=== PATIENT | female | born 1965 | race Two or more races ===

== ENCOUNTER 2024-07-12 10:30 | Emergency (ER) | payer MEDICAID, SELFPAY ==
[2024-07-12 10:40] VITALS: BP 169/103; PULSE 83; RESP 20; TEMP 36.4; O2SAT 96; BMI 38.5
--- NOTE | 2024-07-12 10:42 | PD.EDURI ---
Upper Respiratory Inf. RME/HPI General Chief Complaint: Flu Like Symptoms Stated Complaint: Cough X 8 days, SOB Time Seen by Provider: 07/12/24 10:34 Arrival date/time: 07/12/24 10:30 RME / HPI RME / HPI Narrative: This section includes all my notes and documentations, including HPI, PE, MDM, Procedure Notes, and PLAN. He Zamora MD HPI: 58 year old female with history of hypertension, diabetes, and hyperlipidemia presents to the ED for complaint of a dry cough beginning 8 days ago. Accompanied by pain to her chest and rib cage which she attributes to coughing. Denies fevers, chills, sweats, sore throat, shortness of breath, abdominal pain, n/v/d, or urinary symptoms. No other complaints reported. ROS: Respiratory: negative except as documented in HPI. Musculoskeletal: negative except as documented in HPI. Skin: negative except as documented in HPI. Neurological: negative except as documented in HPI. Physical Exam: General: Alert and oriented. Hacking cough noted. Eyes: Conjunctivae and lids clear. ENT: No nasal congestion. Pharynx normal. Tympanic membrane normal bilaterally. Neck: Supple. Heart: RRR. Lungs: No respiratory distress. Moderately decreased air movement with diffuse rhonchi. Legs: No clubbing, cyanosis, edema. Skin: Warm and dry. Neuro: Alert and oriented X 3. I reviewed all diagnostic test results. My interpretation of the chest x-ray is no acute findings. COVID/influenza negative. At this point, diagnoses include bronchitis. Treatment here included prednisone 60 mg, DuoNeb, and two Tylenol #3. Significant improvement noted subjectively and objectively. Recommended a trial of outpatient treatment. Based on my best medical judgment, made decision no further evaluation or treatment indicated at this time. Patient understands and agrees to the discharge instructions customized and printed, see below. Discharge instructions from Dr. Zamora: --No physical exertion for 3 days to help rest the lungs. ?No smoking or exposure to smoking or pets or dust or cold or humidity. --Zithromax to kill the germs causing the bronchitis. --Prednisone to help decrease the swelling in the airways. --Albuterol 2 puffs every 4-6 hours for 48 hours to help keep the airways open.? Then as needed for cough or shortness of breath. --Tylenol with codeine for severe cough. --See a private doctor on 07/16/2024 if not better. --Seek immediate medical care with worsening or with any concerns. Related Data Previous Rx's ?Medication ?Instructions ?Recorded albuterol sulfate 90 mcg/actuation 2 puff inhalation Q6H PRN 07/20/22 aerosol inhaler (Ventolin HFA) shortness of breath or wheezing #8.5 grams azithromycin 500 mg tablet See Rx Instructions PO .COMPLEX #6 07/20/22 tabs promethazine-DM 6.25 mg-15 mg/5 mL 5 ml PO Q6H PRN cough #240 mL 07/20/22 oral syrup cyclobenzaprine 10 mg tablet 10 mg PO TID #20 tabs 08/20/22 meloxicam 7.5 mg tablet 7.5 mg PO QDAY #14 tabs 08/20/22 cyclobenzaprine 10 mg tablet 10 mg PO TID PRN muscle spasm #30 03/31/23 tabs ibuprofen 800 mg tablet 800 mg PO TID PRN pain #30 tabs 03/31/23 acetaminophen 300 mg-codeine 30 mg 2 tab PO TID PRN pain #10 tabs 07/12/24 tablet albuterol sulfate 90 mcg/actuation 2 inh inhalation QID PRN shortness 07/12/24 aerosol inhaler of breath or wheezing #8.5 grams azithromycin 500 mg tablet 500 mg PO QDAY 3 days #3 tabs 07/12/24 (Zithromax TRI-ANGELINE) prednisone 50 mg tablet 50 mg PO QDAY #3 tabs 07/12/24 Allergies Allergy/AdvReac Type Severity Reaction Status Date / Time No Known Allergies Allergy Verified 08/20/22 11:43 Review of Systems Review of Systems Systems Reviewed: All systems reviewed, normal except as documented Past Medical History Past Medical History CARDIAC: Negative Cardiac Disorders or Congestive Heart Failure RESPIRATORY: Negative Chronic Obstructive Pulmonary Disease (COPD) or Asthma GENITOURINARY: Negative Renal Disease ENDOCRINE: Negative Diabetes Mellitus Type 1 or Diabetes Mellitus Type 2 HEMATOLOGIC: Negative Sickle Cell Disease Social History SMOKING STATUS: Former smoker ED Exam Narrative Physical exam: As noted in HPI Course Course Course Narrative: chest xray ordered to help determine etiology of shortness of breath. Quality Measures none Orders Category Date Time Status Bedside COVID-19 Antigen Test NOW Care 07/12/24 10:41 Completed Bedside Influenza A&B Antigen Test NOW Care 07/12/24 10:41 Completed XR chest 1V portable Stat Exams 07/12/24 10:41 Completed ACETAMINOPHEN w/COD 300-30 [Tylenol w/Cod #3] Med 07/12/24 10:42 Discontinued 2 tab PO X1 ONE Albuterol/Ipratr Rt Kina [Duoneb Rt Kina] Med 07/12/24 10:42 Discontinued 3 ml INH X1 ONE cloNIDine HCL [Catapres] Med 07/12/24 10:42 Discontinued 0.3 mg PO X1 ONE predniSONE Med 07/12/24 10:42 Discontinued 60 mg PO X1 ONE Vital Signs Vital signs: Vital Signs Temperature 97.5 F 07/12/24 10:40 Pulse Rate 83 07/12/24 10:40 Respiratory Rate 20 07/12/24 10:40 Blood Pressure 169/103 H 07/12/24 10:40 Pulse Oximetry (%) 96 07/12/24 10:40 Oxygen Delivery Method Room Air 07/12/24 10:40 Pulse ox is 96% on room air which is adequate. Upper Respiratory Infection MDM Narrative MDM Narrative:: Kary Matute am scribing for and in the presence of Dr. Zamora. Patient data External records reviewed:: [facility] previous records Clinical information provided by:: patient Social determinants that could affect healthcare access:: none Patient has the following chronic illnesses:: HTN, DM, HLD How is presenting disease/condition affected by chronic disease/condition?: uneffected by Evaluation data The following diagnostics were reviewed and interpreted by me:: lab results and radiology exam(s) Lab and/or radiology exams considered but not ordered:: None Interpretation Summary: Ordering Physician: He Zamora MD Date of Service: 07/12/24 Procedure(s): XR chest 1V portable Accession Number(s): [id number] cc: He Zamora MD; Mychal Theodore MD~ Examination: PA chest single view TECHNIQUE: Upright PA chest single view Exam date and time: July 12, 2024 1045 hours Comparison 03/20/2022 INDICATIONS: Chest pain coughing beginning 8 days ago FINDINGS: Normal heart size. Lungs are clear. The osseous structures are intact IMPRESSION: No active disease Dictated By: Mychal Theodore MD Signed By: <Electronically signed by Mychal Theodore MD in OV> 07/12/24 1136 Medications / Prescriptions Medications or Prescriptions considered but not ordered:: None Medication administrations:: Medication Administration History Discontinued Medications Acetaminophen/Codeine Phosphate (Acetaminophen W/Cod 300-30 Tablet) 2 tab PO X1 ONE Stop: 07/12/24 10:43 Last Admin: 07/12/24 11:39 Dose: 2 tab Documented By: OA Albuterol/Ipratropium (Albuterol/Ipratropium (Duoneb) Rt Kina 3 Ml Nebu) 3 ml INH X1 ONE Stop: 07/12/24 10:43 Last Admin: 07/12/24 11:43 Dose: 3 ml Documented By: Clonidine (Clonidine Hcl 0.1 Mg Tablet) 0.3 mg PO X1 ONE Stop: 07/12/24 10:43 Last Admin: 07/12/24 11:39 Dose: 0.3 mg Documented By: OA Prednisone (Prednisone 20 Mg Tablet) 60 mg PO X1 ONE Stop: 07/12/24 10:43 Last Admin: 07/12/24 11:40 Dose: 60 mg Documented By: OA See above Consultations Consultation(s) initiated? (list below): No Diagnosis Upper Respiratory Differential Diagnosis: upper respiratory infection, sinusitis, viral infection and bronchitis Most likely diagnosis given after review of the tests above:: Bronchitis Admission Indicated Admission indicated?: not indicated Admission Request Was there a request for admission?: No Disposition Plan Disposition Plan: Discharge Discharge Attestation Discharge Attestation: The patient and all family members were given an opportunity to ask questions and understood the discharge instructions. Discharge instructions specifically effects, indications for sooner follow up or return to the emergency department, and the expected course of current diagnosis. Patient condition: Stable Discharge Plan Plan Patient Disposition: HOME (Self Care) Prescriptions/Referrals Prescriptions/Med Rec: New acetaminophen-codeine 300-30 mg tablet 2 tab PO TID MDD 6 PRN (Reason: pain) Qty: 10 0RF albuterol sulfate 90 mcg/actuation HFA aerosol inhaler 2 inh inhalation QID PRN (Reason: shortness of breath or wheezing) Qty: 8.5 0RF azithromycin [Zithromax TRI-ANGELINE] 500 mg tablet 500 mg PO QDAY 3 Days Qty: 3 0RF prednisone 50 mg tablet 50 mg PO QDAY Qty: 3 0RF No Action cyclobenzaprine 10 mg tablet 10 mg PO TID Qty: 20 0RF meloxicam 7.5 mg tablet 7.5 mg PO QDAY Qty: 14 0RF cyclobenzaprine 10 mg tablet 10 mg PO TID PRN (Reason: muscle spasm) Qty: 30 0RF ibuprofen 800 mg tablet 800 mg PO TID PRN (Reason: pain) Qty: 30 0RF albuterol sulfate [Ventolin HFA] 90 mcg/actuation HFA aerosol inhaler 2 puff inhalation Q6H PRN (Reason: shortness of breath or wheezing) Qty: 8.5 0RF azithromycin 500 mg tablet See Rx Instructions .ROUTE .COMPLEX Qty: 6 0RF Rx Instructions: take 500 mg today (day 1), then 250 mg for 4 days (days 2-5) promethazine-DM 6.25-15 mg/5 mL syrup 5 ml PO Q6H PRN (Reason: cough) Qty: 240 0RF Referrals: Te Guevara FNP [Primary Care Provider] - In 1 week Problem List Clinical Impression: Bronchitis Patient/Caregiver Discharge Instructions Discharge Activity: activity as tolerated Education Materials: ED Bronchitis with Wheezing (Adult) Additional Instructions: Discharge instructions from Dr. Zamora: --No physical exertion for 3 days to help rest the lungs. ?No smoking or exposure to smoking or pets or dust or cold or humidity. --Zithromax to kill the germs causing the bronchitis. --Prednisone to help decrease the swelling in the airways. --Albuterol 2 puffs every 4-6 hours for 48 hours to help keep the airways open.? Then as needed for cough or shortness of breath. --Tylenol with codeine for severe cough. --See a private doctor on 07/16/2024 if not better. --Seek immediate medical care with worsening or with any concerns. Print Language: [place] Stand Alone Forms: [employer] Award Info., Patient Portal Info Letter
[2024-07-12 11:39] VITALS: BP 169/103; PULSE 83
[2024-07-12] MEDS: cloNIDine HCL 0.1 MG TABLET 0.3 MG PO (11:39)
[2024-07-12] MEDS: ACETAMINOPHEN w/COD 300-30 TABLET 2 TAB PO (11:39)
[2024-07-12] MEDS: predniSONE 20 MG TABLET 60 MG PO (11:40)
[2024-07-12] MEDS: ALBUTEROL/IPRATROPIUM (Duoneb) RT SOL 3 ML NEBU INH (11:43)
[2024-07-12 11:46] VITALS: PULSE 80; RESP 18; O2SAT 100
[2024-07-12 12:13] VITALS: BP 144/89; PULSE 78
== END 2024-07-12 12:15 | disposition home or self-care (01) ==
PROVIDERS: Emergency Provider Emergency Medicine; PCP Nurse Practitioner
DX: J40 Bronchitis, not specified as acute or chronic (principal); Z87.891 Personal history of nicotine dependence
CPT/HCPCS: 71045; 87400; 87811; 94640; 99283; A9270; J7512

== ENCOUNTER 2025-01-04 19:22 | Emergency (ER) | payer MEDICAID, SELFPAY ==
[2025-01-04 19:57] VITALS: BP 149/82; PULSE 83; RESP 20; TEMP 36.7; O2SAT 96
--- NOTE | 2025-01-04 20:13 | EKG_ITS ---
[facility] Test Date: 2025-01-04 Pat Name: ESA BENTON Department: Room: - Gender: Female [id number] Analyst: : 1965 Requested By: Earnest Bills Order Number: [id number] Reading MD: Earnest Bills Measurements Intervals [place] Rate: 82 P: 12 NV: 131 QRS: 21 QRSD: 72 T: 32 QT: 345 QTc: 405 Interpretive Statements SINUS RHYTHM LOW QRS VOLTAGE IN PRECORDIAL LEADS [QRS DEFLECTION < 1.0 mV IN CHEST LEADS] No previous ECG available for comparison /store/S0/[id number].pdf
--- NOTE | 2025-01-04 20:13 | XR_ITS ---
Examination: PA chest single view TECHNIQUE: Upright PA chest single view Date and time: 04/06/20252034 hours, comparison July 12, 2024 INDICATIONS: Chest pain and headache today FINDINGS: Normal heart size. Lungs are clear. Osseous structures are demineralized IMPRESSION: No active disease
--- NOTE | 2025-01-04 20:14 | XR_ITS ---
Examination: CT brain head without contrast. 2-D sagittal coronal reconstructions Date and time of exam:January 04, 2025 10:21 PM Comparison March 31, 2023 INDICATIONS: Onset blurred vision today CTDI: vol (mGy):51 DLP: (mGycm):967 Technique: Multiple CT axial sections of the brain have been obtained, 5 mm slice thickness. Contrast has not been administered. 2-D sagittal, coronal reconstructions have been obtained Low dose protocols were performed. One or more of the following dose reduction techniques were used; automated exposure control, adjustment of the mA and/or KV according to patient size, use of iterative reconstruction technique. Findings: No significant ventricular enlargement. Intra-axial or extra-axial hemorrhage density is not seen. No mass effect or midline shift Basal cisterns are not remarkable. Fourth ventricle is midline. Cranial vault intact. Impression: Negative for acute hemorrhage, mass effect or midline shift Advise clinical correlation and follow up accordingly
--- NOTE | 2025-01-04 20:15 | PD.EDRME ---
Rapid Medical Screening Exam [facility] Arrival date/time: 01/04/25 19:22 59F with history of HTN and hypothyroidism presents to ED with 2 weeks of blurry vision. Patient also has 2 days of CP, LLQ ab pain, and some N/V.Patient denies SOB and URI symptoms. Chief Complaint: Headache Vital signs: Vital Signs Temperature 98.0 F 01/04/25 19:57 Pulse Rate 83 01/04/25 19:57 Respiratory Rate 20 01/04/25 19:57 Blood Pressure 149/82 H 01/04/25 19:57 Pulse Oximetry (%) 96 01/04/25 19:57 Oxygen Delivery Method Room Air 01/04/25 19:57
[2025-01-04 20:43] LABS: Basophils % (Auto) 0 % (0-2.5); Eosinophils # (Auto) 0.2 Thou/mm3 (0.0-0.5); Eosinophils % (Auto) 2 % (0-10); Hematocrit 39.2 % (36.0-46.0); Hemoglobin 13.5 g/dL (12.0-16.0); Immature Granulocytes % (Auto) 0 % (0-0); Immature Granulocytes Auto 0.02 Thou/mm3 (0.00-0.00); Lymphocytes % (Auto) 29 % (10-50); Mean Corpuscular HGB Conc 34.4 g/dl (31.0-37.0); Mean Corpuscular Hemoglobin 29.2 pg (25.0-35.0); Mean Corpuscular Volume 85 fL (80-100); Monocytes # (Auto) 0.7 Thou/mm3 (0.0-0.8); Monocytes % (Auto) 6 % (0-12); Neutrophils # (Auto) 6.5 Thou/mm3 (1.8-7.7); Neutrophils % (Auto) 63 % (37-80); Nucleated Red Blood Cell % 0 /100 WBC (0); Platelet Count 213 Thou/mm3 (140-440); RDW Standard Deviation 39.3 fL (36.4-46.3); Red Blood Count 4.63 Miln/mm3 (4.00-5.20); White Blood Count 10.3 Thou/mm3 (3.6-11.0)
[2025-01-04 21:00] LABS: B-Type Natriuretic Peptide < 20 pg/mL (0-100)
[2025-01-04 21:04] LABS: Alanine Aminotransferase 12 U/L (10-49); Albumin, Serum 4.8 gm/dL (3.5-5.0); Albumin/Globulin Ratio 1.5 (1.2-2.2); Alkaline Phosphatase 106 U/L (46-116); Anion Gap 9 (7-16); Aspartate Amino Transferase 19 U/L (0-34); BUN/Creatinine Ratio 16 Ratio (12-20); Bilirubin,Total 0.8 mg/dL (0.3-1.2); Blood Urea Nitrogen 13 mg/dL (9-23); Calcium 9.1 mg/dL (8.3-10.6); Calcium (Corrected) 9.1 mg/dL (8.5-10.1); Carbon Dioxide 27.7 mMol/L (20.0-31.0); Chloride 103 mMol/L (98-107); Creatinine (Component) 0.8 mg/dL (0.6-1.3); Globulin 3.1 gm/dL (2.3-3.5); Glucose 105 mg/dL (74-106); Lipase 40 U/L (12-53); Osmolality,Calculated 279 (275-295); Sodium 140 mMol/L (136-145); Total Protein 7.9 gm/dL (5.7-8.2); Troponin I < 0.002 ng/mL (0.0-0.045); eGFR > 60 See Note
[2025-01-04 21:05] LABS: Free T4 (Free Thyroxine) 1.34 ng/dL (0.89-1.76); Thyroid Stimulating Hormone 1.76 uIU/mL (0.55-4.78)
[2025-01-04 22:50] LABS: Collection Type, Urine Clean Catch
[2025-01-04 23:07] LABS: Bilirubin,Urine Negative (Negative); Blood,Urine Negative (Negative); Clarity,Urine Clear (Clear/Hazy); Color,Urine Lt-Yellow (Lt Yel-Yel); Glucose, Urine Negative (Negative); Ketones,Urine Negative (Negative); Leukocyte Esterase,Urine Positive (Negative); Nitrite,Urine Positive (Negative); PH,Urine 6.5 (5.0-7.0); Protein,Urine Negative (Neg - Trace); Specific Gravity,Urine 1.009 (1.001-1.035); Urobilinogen,Urine Negative mg/dL (0.0-1.0)
[2025-01-04 23:20] LABS: RBC,Urine 3 /hpf (0-3); WBC,Urine 26 /hpf (0-5)
[2025-01-04 23:21] LABS: Squamous Epithelial Cell,Urine 3 /hpf (0-5)
[2025-01-04 23:22] LABS: Bacteria,Urine 2+
[2025-01-04 23:25] LABS: Amphetamine/Methamp Scrn,U Negative (Negative); Barbiturate Screen,Urine Negative (Negative); Benzodiazepines Screen,Urine Negative (Negative); Benzoylecgonine Screen, Ur Negative (Negative); Fentanyl Screen,Urine Negative (Negative); Opiate Screen,Urine Negative (Negative); THC Screen,Urine Negative (Negative)
--- NOTE | 2025-01-05 00:38 | EDNOTE_ITS ---
ED Headache RME/HPI General Chief Complaint: Headache Stated Complaint: HEADACHE Arrival date/time: 01/04/25 19:22 RME / HPI RME / HPI Narrative: 01/04/25 19:22 59F with history of HTN and hypothyroidism presents to ED with 2 weeks of blurry vision. Patient also has 2 days of CP, LLQ ab pain, and some N/V.Patient denies SOB and URI symptoms. Dr. Tamez?s Main ED Evaluation: 59yo female with a history of HTN presents to the ED for multiple complaints. Patient states she started having a headache, heavy eyelids , dizziness described as the room is spinning, chest pain, shortness of breath, abdominal pain, and N/V earlier today, reporting all of her symptoms came at once. Patient states she had similar symptoms 3 months ago, but notes they had resolved on their own. Patient states her symptoms were persistent today and she was concerned, so she came in for evaluation, Patient denies any back pain, diarrhea, numbness, tingling, fever, chills or any other associated symptoms. NKA. Related Data Previous Rx's ?Medication ?Instructions ?Recorded albuterol sulfate 90 mcg/actuation 2 puff inhalation Q 6H PRN 07/20/22 aerosol inhaler (Ventolin HFA) shortness of breath or wheezing #8.5 grams azithromycin 500 mg tablet See Rx Instructions PO .COM PLEX #6 07/20/22 tabs promethazine-DM 6.25 mg-15 mg/5 mL 5 ml PO Q6H PRN cou gh #240 mL 07/20/22 oral syrup cyclobenzaprine 10 mg tablet 10 mg PO TID #20 tabs meloxicam 7.5 mg tablet 7.5 mg PO QDAY #14 tabs 07/24 cyclobenzaprine 10 mg tablet 10 mg PO TID PRN muscle s pasm #30 03/31/23 tabs ibuprofen 800 mg tablet 800 mg PO TID PRN pain #30 t abs 03/31/23 acetaminophen 300 mg-codeine 30 mg 2 tab PO TID PRN pa in #10 tabs 07/12/24 tablet albuterol sulfate 90 mcg/actuation 2 inh inhalation QI D PRN shortness 07/12/24 aerosol inhaler of breath or wheezing #8.5 g lindsay prednisone 50 mg tablet 50 mg PO QDAY #3 tabs aluminum-mag hydroxide-simethicone 15 ml PO QID PRN GE RD #3,000 mL 01/05/25 200 mg-200 mg-20 mg/5 mL oral susp (Maalox Advanced) ibuprofen 600 mg tablet 600 mg PO Q6H PRN headache # 20 tabs 01/05/25 meclizine 25 mg chewable tablet 25 mg PO TID PRN Posit ional 01/05/25 (Antivert) vertigo #20 tabs nitrofurantoin 100 mg PO BID Urinary tract 01/05/25 monohydrate/macrocrystals 100 mg infection #14 caps capsule (Macrobid) Allergies Allergy/AdvReac Type Severity Reaction Status Date / Time No Known Allergies Allergy Verified 08/20/22 11:43 Review of Systems Review of Systems Systems Reviewed: All systems reviewed, normal except as documented Past Medical History Past Medical History CARDIAC: Negative Cardiac Disorders or Congestive Heart Failure RESPIRATORY: Negative Chronic Obstructive Pulmonary Disease (COPD) or Asthma GENITOURINARY: Negative Renal Disease ENDOCRINE: Negative Diabetes Mellitus Type 1 or Diabetes Mellitus Type 2 HEMATOLOGIC: Negative Sickle Cell Disease Social History SMOKING STATUS: Never smoker ED Exam Narrative Physical exam: GENERAL APPEARANCE: alert and oriented x 4, well-developed, well-nourished, no acute distress VITALS: All vitals were reviewed and the pulse ox is 96% on room air, which is normal according to my interpretation. HEENT: Normocephalic, atraumatic; pupils equal, round, reactive to light; EOMI; left horizontal nystagmus, mucous membranes pink, moist; oropharynx clear NECK: Supple LUNGS: CTABL; no wheezes, no rales, no rhonchi HEART: Regular rate, regular rhythm; normal S1, S2; no murmurs ABDOMEN: non distended; normal BS; soft, no tenderness, no guarding, no rebound; no masses, no organomegaly, no hernia BACK: no CVA tenderness EXTREMITIES: atraumatic; no edema NEUROLOGIC: awake; alert and oriented x4; cranial nerves II-XII grossly intact; no focal sensory or motor deficits; no intention tremor, steccato speech, dysmetria or dysdiadochokinesia PSYCHIATRIC: appropriate mood and affect SKIN: warm, dry, normal color; no rashes Course Course Course Narrative: CXR is ordered for determining the etiology of chest pain. Quality Measures none Orders Category Date Time Status EKG (ED ONLY) *Do not use* NOW Care 01/04/25 20:[address] head/brain wo con Stat Exams 01/04/25 20:14 Completed EKG (ED Only) Stat Exams 01/04/25 20:13 Draft XR chest 1V portable Stat Exams 01/04/25 20:13 Completed B-Type Natriuretic Peptide Stat Lab 01/04/25 20:32 Completed CBC Stat Lab 01/04/25 20:32 Completed Comprehensive Metabolic Panel Stat Lab 01/04/25 20:32 Completed Drug Screen,Urine Stat Lab 01/04/25 22:40 Completed Free T4 (Free Thyroxine) Stat Lab 01/04/25 20:32 Completed Lipase Stat Lab 01/04/25 20:32 Completed TSH [Thyroid Stimulating Hormone] Stat Lab 01/04/25 20:32 Completed Troponin I Stat Lab 01/04/25 20:32 Completed Urinalysis Stat Lab 01/04/25 22:40 Completed Vital Signs Vital signs: Vital Signs Temperature 98.0 F 01/04/25 19:57 Pulse Rate 83 01/04/25 19:57 Respiratory Rate 20 01/04/25 19:57 Blood Pressure 149/82 H 01/04/25 19:57 Pulse Oximetry (%) 96 01/04/25 19:57 Oxygen Delivery Method Room Air 01/04/25 19:57 Headache MDM Narrative MDM Narrative:: Scribe Attestation: 01/05/25 Katy Mack am scribing for and in the presence of Dr. Tamez. Patient data External records reviewed:: [facility] previous records (Per chart review, patient was seen here on 03/31/23 for a headache.) Clinical information provided by:: patient Social determinants that could affect healthcare access:: none Patient has the following chronic illnesses:: HTN How is presenting disease/condition affected by chronic disease/condition?: uneffected by Evaluation data The following diagnostics were reviewed and interpreted by me:: lab results and radiology exam(s) Lab and/or radiology exams considered but not ordered:: none Interpretation Summary: CBC is normal, CMP is normal, Troponin is normal, BNP is normal, TSH and Free T4 are normal, UA is positive for a UTI, UDS is negative, according to my interpretation. EKG done at 2017, NSR, rate of 82, normal axis, no ectopy, no acute ischemia, according to my interpretation. [facility] Signed Patient: ESA BENTON [facility]. Record#: [id number] Birthdate: 1965 Age/Sex: 59 / F Location: [facility] Attending Dr: Ordering Physician: Earnest Bills PA-C Date of Service: 01/04/25 Procedure(s): XR chest 1V portable Accession Number(s): [id number] cc: Mychal Theodore MD; Te Guevara; Earnest Bills PA-C~ Examination: PA chest single view TECHNIQUE: Upright PA chest single view Date and time: 04/06/2025 2035 hours, comparison July 12, 2024 INDICATIONS: Chest pain and headache today FINDINGS: Normal heart size. Lungs are clear. Osseous structures are demineralized IMPRESSION: No active disease Dictated By: Mychal Theodore MD Signed By: <Electronically signed by Mychal Theodore MD in OV> 01/04/252052 [facility] Signed Patient: ESA BENTON [facility]. Record#: [id number] Birthdate: 1965 Age/Sex: 59 / F Location: [facility] Attending Dr: Ordering Physician: Earnest Bills PA-C Date of Service: 01/04/25 Procedure(s): CT head/brain wo con Accession Number(s): [id number] cc: Mychal Theodore MD; Te Guevara; Earnest Bills PA-C~ Examination: CT brain head without contrast. 2-D sagittal coronal reconstructions Date and time of exam:January 04, 2025 10:21 PM Comparison March 31, 2023 INDICATIONS: Onset blurred vision today CTDI: vol (mGy):51 DLP: (mGycm):967 Technique: Multiple CT axial sections of the brain have been obtained, 5 mm slice thickness. Contrast has not been administered. 2-D sagittal, coronal reconstructions have been obtained Low dose protocols were performed. One or more of the following dose reduction techniques were used; automated exposure control, adjustment of the mA and/or KV according to patient size, use of iterative reconstruction technique. Findings: No significant ventricular enlargement. Intra-axial or extra-axial hemorrhage density is not seen. No mass effect or midline shift Basal cisterns are not remarkable. Fourth ventricle is midline. Cranial vault intact. Impression: Negative for acute hemorrhage, mass effect or midline shift Advise clinical correlation and follow up accordingly Dictated By: Mychal Theodore MD Signed By: <Electronically signed by Mychal Theodore MD in OV> 01/04/25 1434 Medications / Prescriptions Medications or Prescriptions considered but not ordered:: none Medication administrations:: see above Consultations Consultation(s) initiated? (list below): No Diagnosis Differential diagnosis headache: other (cerebellar CVA, benign positional vertigo, near syncope, hemorrhagic CVA, STEMI, NSTEMI, GERD) Most likely diagnosis given after review of the tests above:: see clinical impression below Admission Indicated Admission indicated?: not indicated Admission Request Was there a request for admission?: No Disposition Plan Disposition Plan: Discharge Discharge Attestation Discharge Attestation: The patient and all family members were given an opportunity to ask questions and understood the discharge instructions. Discharge instructions specifically effects, indications for sooner follow up or return to the emergency department, and the expected course of current diagnosis. Patient condition: Stable Discharge Plan Plan Patient Disposition: HOME (Self Care) Discharge Disposition comment: Stable for discharge home Patient condition on transfer: Stable Prescriptions/Referrals Prescriptions/Med Rec: New meclizine [Antivert] 25 mg tablet,chewable 25 mg PO TID PRN (Reason: Positional vertigo) Qty: 20 0RF nitrofurantoin monohyd/m-cryst [Macrobid] 100 mg capsule 100 mg PO BID Qty: 14 0RF Rx Instructions: must administer with a meal/food alum-mag hydroxide-simeth [Maalox Advanced] 200-200-20 mg/5 mL suspension 15 ml PO QID PRN (Reason: GERD) Qty: 3000 0RF Rx Instructions: administer between meals and at bedtime ibuprofen 600 mg tablet 600 mg PO Q6H PRN (Reason: headache) Qty: 20 0RF No Action cyclobenzaprine 10 mg tablet 10 mg PO TID Qty: 20 0RF meloxicam 7.5 mg tablet 7.5 mg PO QDAY Qty: 14 0RF cyclobenzaprine 10 mg tablet 10 mg PO TID PRN (Reason: muscle spasm) Qty: 30 0RF ibuprofen 800 mg tablet 800 mg PO TID PRN (Reason: pain) Qty: 30 0RF albuterol sulfate [Ventolin HFA] 90 mcg/actuation HFA aerosol inhaler 2 puff inhalation Q6H PRN (Reason: shortness of breath or wheezing) Qty: 8.5 0RF azithromycin 500 mg tablet See Rx Instructions .ROUTE .COMPLEX Qty: 6 0RF Rx Instructions: take 500 mg today (day 1), then 250 mg for 4 days (days 2-5) promethazine-DM 6.25-15 mg/5 mL syrup 5 ml PO Q6H PRN (Reason: cough) Qty: 240 0RF acetaminophen-codeine 300-30 mg tablet 2 tab PO TID MDD 6 PRN (Reason: pain) Qty: 10 0RF albuterol sulfate 90 mcg/actuation HFA aerosol inhaler 2 inh inhalation QID PRN (Reason: shortness of breath or wheezing) Qty: 8.5 0RF prednisone 50 mg tablet 50 mg PO QDAY Qty: 3 0RF Referrals: Te Guevara FNP [Primary Care Provider] - In 1 week Problem List Clinical Impression: Episodic peripheral vertigo, Urinary tract infection Patient/Caregiver Discharge Instructions Discharge Activity: activity as tolerated Education Materials: Urinary Tract Infections in Women, Anatomy of the Inner Ear, ED BPV Vertigo Additional Instructions: Please return to the emergency department if you have any worsening or any fur ther medical problems and we will help you. Otherwise you should follow-up with your primary care doctor or in the family health care clinic within the next several days. Print Language: Peruvian Stand Alone Forms: [employer] Award Info., Patient Portal Info Letter
[2025-01-05] MEDS: MECLIZINE HCL 25 MG TABLET PO (00:52)
[2025-01-05] MEDS: MG HYD/AL HYD/SIME (Maalox Reg) SUSP 30 ML UDC PO (00:52)
[2025-01-05 00:57] VITALS: RESP 16
== END 2025-01-05 00:57 | disposition home or self-care (01) ==
PROVIDERS: Physician Assistant; Emergency Provider Emergency Medicine; PCP Nurse Practitioner
DX: H81.399 Other peripheral vertigo, unspecified ear (principal); R51.9 Headache, unspecified; N39.0 Urinary tract infection, site not specified; R07.9 Chest pain, unspecified; H53.8 Other visual disturbances; R94.31 Abnormal electrocardiogram [ECG] [EKG]; I10 Essential (primary) hypertension
CPT/HCPCS: 36415; 70450; 71045; 80053; 80307; 81001; 83690; 83880; 84439; 84443; 84484; 85025; 93005; 99284; A9270

== ENCOUNTER 2025-04-26 17:27 | Emergency (ER) | payer MEDICAID, SELFPAY ==
[2025-04-26 17:47] VITALS: BP 146/84; PULSE 85; RESP 18; TEMP 37; O2SAT 98; BMI 38.0
--- NOTE | 2025-04-26 17:50 | XR_ITS ---
Examination: PA lateral chest 2 views Technique: Upright PA lateral chest 2 views Date and time: April 26, 2025 1819 hrs., Comparison January 04, 2025 Indications: High blood pressure chest pain shortness of breath beginning 3 days ago. Findings: Normal heart size. Lungs are clear. The osseous structures are intact. Impression: No active disease.
--- NOTE | 2025-04-26 17:50 | EKG_ITS ---
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
--- NOTE | 2025-04-26 17:51 | EDRME_ITS ---
Rapid Medical Screening Exam RME Arrival date/time: 04/26/25 17:27 59-year-old female with normal medical history presents to the emergency room with a chief complaint of dizziness, lightheadedness, chest pain, palpitations x 2 days I have greeted and performed a focused initial assessment of this patient. A com prehensive ED assessment and evaluation of the patient, analysis of all test results, and completion of the medical decision making process will be conducted by additional ED providers. Chief Complaint: Shortness of Breath/Dyspnea Vital signs: Vital Signs Temperature 98.6 F 04/26/25 17:47 Pulse Rate 85 04/26/25 17:47 Respiratory Rate 18 04/26/25 17:47 Blood Pressure 146/84 H 04/26/25 17:47 Pulse Oximetry (%) 98 04/26/25 17:47 Oxygen Delivery Method Room Air 04/26/25 17:47 Vital signs reviewed by provider: Yes
[2025-04-26 18:48] LABS: Basophils # (Auto) 0.0 Thou/mm3 (0.0-0.2); Basophils % (Auto) 0 % (0-2.5); Eosinophils # (Auto) 0.2 Thou/mm3 (0.0-0.5); Eosinophils % (Auto) 2 % (0-10); Hematocrit 38.1 % (36.0-46.0); Hemoglobin 12.6 g/dL (12.0-16.0); Immature Granulocytes Auto 0.01 Thou/mm3 (0.00-0.00); Lymphocytes # (Auto) 2.8 Thou/mm3 (1.0-4.8); Lymphocytes % (Auto) 27 % (10-50); Mean Corpuscular HGB Conc 33.1 g/dl (31.0-37.0); Mean Corpuscular Hemoglobin 29.2 pg (25.0-35.0); Mean Corpuscular Volume 88 fL (80-100); Monocytes # (Auto) 0.7 Thou/mm3 (0.0-0.8); Monocytes % (Auto) 7 % (0-12); Neutrophils # (Auto) 6.4 Thou/mm3 (1.8-7.7); Neutrophils % (Auto) 64 % (37-80); Nucleated Red Blood Cell # 0.00 Thou/mm3 (0.00-0.00); Nucleated Red Blood Cell % 0 /100 WBC (0); Platelet Count 216 Thou/mm3 (140-440); RDW Standard Deviation 41.6 fL (36.4-46.3); Red Blood Count 4.31 Miln/mm3 (4.00-5.20); White Blood Count 10.1 Thou/mm3 (3.6-11.0)
[2025-04-26 19:08] LABS: B-Type Natriuretic Peptide 21 pg/mL (0-100)
[2025-04-26 19:09] LABS: Alanine Aminotransferase 13 U/L (10-49); Albumin, Serum 4.7 gm/dL (3.5-5.0); Albumin/Globulin Ratio 1.7 (1.2-2.2); Alkaline Phosphatase 107 U/L (46-116); Anion Gap 11 (7-16); Aspartate Amino Transferase 20 U/L (0-34); BUN/Creatinine Ratio 15 Ratio (12-20); Bilirubin,Total 0.6 mg/dL (0.3-1.2); Blood Urea Nitrogen 12 mg/dL (9-23); Calcium 10.4 mg/dL (8.3-10.6); Calcium (Corrected) 10.4 mg/dL (8.5-10.1); Carbon Dioxide 27.1 mMol/L (20.0-31.0); Chloride 103 mMol/L (98-107); Creatinine (Component) 0.8 mg/dL (0.6-1.3); Estimated Creatinine Clearance 84.2 mL/min (>60); Globulin 2.8 gm/dL (2.3-3.5); Glucose 100 mg/dL (74-106); Osmolality,Calculated 280 (275-295); Potassium 4.5 mMol/L (3.4-5.1); Sodium 141 mMol/L (136-145); Total Protein 7.5 gm/dL (5.7-8.2); Troponin I < 0.002 ng/mL (0.0-0.045); eGFR > 60 See Note
[2025-04-26 19:23] LABS: Collection Type, Urine Clean Catch
[2025-04-26] MEDS: MECLIZINE HCL 25 MG TABLET 50 MG PO (19:30)
[2025-04-26 19:42] LABS: Bilirubin,Urine Negative (Negative); Blood,Urine 3+ (Negative); Clarity,Urine Turbid (Clear/Hazy); Color,Urine Yellow (Lt Yel-Yel); Culture Indicated,Urine Contaminated; Glucose, Urine Negative (Negative); Hyphae Yeast Present; Ketones,Urine Negative (Negative); Leukocyte Esterase,Urine Positive (Negative); Nitrite,Urine Positive (Negative); PH,Urine 6.0 (5.0-7.0); Protein,Urine Trace (Neg - Trace); RBC,Urine 140 /hpf (0-3); Specific Gravity,Urine 1.023 (1.001-1.035); Squamous Epithelial Cell,Urine 21 /hpf (0-5); Urobilinogen,Urine Negative mg/dL (0.0-1.0); WBC,Urine 186 /hpf (0-5)
[2025-04-26 20:51] VITALS: BP 150/86; PULSE 82; RESP 17; TEMP 36.6; O2SAT 100
[2025-04-26 20:53] VITALS: BP 150/86; PULSE 75; RESP 17; TEMP 36.6; O2SAT 98
--- NOTE | 2025-04-26 22:01 | EDNOTE_ITS ---
ED General RME/HPI General Chief complaint: Shortness of Breath/Dyspnea Stated complaint: FEELS FAINT AND HAVING CHEST PALPITATIONS X2 DAYS Time Seen by Provider: 04/26/25 17:51 Arrival date/time: 04/26/25 17:27 RME / HPI RME / HPI narrative: 59-year-old female with normal medical history presents to the emergency room with a chief complaint of dizziness, lightheadedness, chest wall pain, palpitations x 2 days. Severity of symptoms mild. Denies any fever. Denies any vomiting. Denies any other complaints no medication was taken prior to arrival. Related Data Previous Rx's ?Medication ?Instructions ?Recorded albuterol sulfate 90 mcg/actuation 2 puff inhalation Q 6H PRN 07/20/22 aerosol inhaler (Ventolin HFA) shortness of breath or wheezing #8.5 grams azithromycin 500 mg tablet See Rx Instructions PO .COM PLEX #6 07/20/22 tabs promethazine-DM 6.25 mg-15 mg/5 mL 5 ml PO Q6H PRN cou gh #240 mL 07/20/22 oral syrup cyclobenzaprine 10 mg tablet 10 mg PO TID #20 tabs meloxicam 7.5 mg tablet 7.5 mg PO QDAY #14 tabs 07/24 cyclobenzaprine 10 mg tablet 10 mg PO TID PRN muscle s pasm #30 03/31/23 tabs ibuprofen 800 mg tablet 800 mg PO TID PRN pain #30 t abs 03/31/23 acetaminophen 300 mg-codeine 30 mg 2 tab PO TID PRN pa in #10 tabs 07/12/24 tablet albuterol sulfate 90 mcg/actuation 2 inh inhalation QI D PRN shortness 07/12/24 aerosol inhaler of breath or wheezing #8.5 g lindsay prednisone 50 mg tablet 50 mg PO QDAY #3 tabs aluminum-mag hydroxide-simethicone 15 ml PO QID PRN GE RD #3,000 mL 01/05/25 200 mg-200 mg-20 mg/5 mL oral susp (Maalox Advanced) ibuprofen 600 mg tablet 600 mg PO Q6H PRN headache # 20 tabs 01/05/25 meclizine 25 mg chewable tablet 25 mg PO TID PRN Posit ional 01/05/25 (Antivert) vertigo #20 tabs nitrofurantoin 100 mg PO BID Urinary tract 01/05/25 monohydrate/macrocrystals 100 mg infection #14 caps capsule (Macrobid) cefuroxime axetil 500 mg tablet 500 mg PO BID #14 tabs 04/26/25 ibuprofen 800 mg tablet 800 mg PO Q8H PRN pain #30 t abs 04/26/25 Allergies Allergy/AdvReac Type Severity Reaction Status Date / Time No Known Allergies Allergy Verified 04/26/25 17:31 Review of Systems Review of Systems Narrative Review of Systems: Review of system reviewed and within normal limits except mentioned in HPI ED Exam Narrative Physical exam: VITAL SIGNS: Reviewed. GENERAL APPEARANCE: Alert and interactive, follows commands, no acute distress, HEAD AND FACE: Non-traumatic. ENT: PERRL, pink conjunctivitis, eyelid no trauma, Mucous membrane moist. NECK: Supple, nontender, no nuchal rigidity. CHEST: Left chest wall tenderness, no crepitus, no paradoxical movement, no retractions. No swelling noted LUNGS: Clear, well ventilated, symmetric, no rales, no wheezing, no ronchi, no stridor, good breath sounds bilaterally. HEART: Regular rate, regular rhythm, no murmur, no gallops. ABDOMEN: Soft, positive bowel sounds, nondistended, no guarding, nontender, no rebound, no masses, RECTAL: Deferred. GENITAL: Deferred. NEUROLOGICAL: Gross motor function intact sensory function intact, Appropriate for age. MUSCULOSKELETAL: low back nontender, full range of motion. EXTREMITIES: Nontender, full range of motion. SKIN: Color pink, dry, no rash, no lacerations, no abrasions, no contusions. LYMPHATICS: Deferred. Course Quality Measures none Orders Category Date Time Status EKG (ED ONLY) *Do not use* NOW Care 04/26/25 17:50 Completed EKG (ED Only) Stat Exams 04/26/25 17:50 Draft XR chest 2V Stat Exams 04/26/25 17:50 Completed B-Type Natriuretic Peptide Stat Lab 04/26/25 18:40 Completed CBC Stat Lab 04/26/25 18:40 Completed Comprehensive Metabolic Panel Stat Lab 04/26/25 18:40 Completed Troponin I Stat Lab 04/26/25 18:40 Completed Urinalysis, C/S if Indicated Stat Lab 04/26/25 18:57 Completed Ketorolac Inj [Toradol Inj] Med 04/26/25 21:58 Discontinued 30 mg IVP X1 ONE Meclizine HCl [Antivert] Med 04/26/25 17:50 Discontinued 50 mg PO X1 ONE Ringers Lactated 1000 ml [Lactated Ringers] 1,000 ml Med 04/26/25 21:59 Discontinued IV 999 mls/hr cefTRIAXone/D5w 1gm IV premix [Rocephin/D5w 1gm IV Med 04/26/25 21:58 Discontinued premix] 1 gm in 50 ml IV X1 Vital Signs Vital signs: Vital Signs Temperature 98.6 F 04/26/25 17:47 Pulse Rate 85 04/26/25 17:47 Respiratory Rate 18 04/26/25 17:47 Blood Pressure 146/84 H 04/26/25 17:47 Pulse Oximetry (%) 98 04/26/25 17:47 Oxygen Delivery Method Room Air 04/26/25 17:47 Discharge Plan Plan Patient Disposition: HOME (Self Care) Discharge Disposition comment: Stable Prescriptions/Referrals Prescriptions/Med Rec: New cefuroxime axetil 500 mg tablet 500 mg PO BID Qty: 14 0RF ibuprofen 800 mg tablet 800 mg PO Q8H PRN (Reason: pain) Qty: 30 0RF No Action cyclobenzaprine 10 mg tablet 10 mg PO TID Qty: 20 0RF meloxicam 7.5 mg tablet 7.5 mg PO QDAY Qty: 14 0RF cyclobenzaprine 10 mg tablet 10 mg PO TID PRN (Reason: muscle spasm) Qty: 30 0RF ibuprofen 800 mg tablet 800 mg PO TID PRN (Reason: pain) Qty: 30 0RF albuterol sulfate [Ventolin HFA] 90 mcg/actuation HFA aerosol inhaler 2 puff inhalation Q6H PRN (Reason: shortness of breath or wheezing) Qty: 8.5 0RF azithromycin 500 mg tablet See Rx Instructions .ROUTE .COMPLEX Qty: 6 0RF Rx Instructions: take 500 mg today (day 1), then 250 mg for 4 days (days 2-5) promethazine-DM 6.25-15 mg/5 mL syrup 5 ml PO Q6H PRN (Reason: cough) Qty: 240 0RF acetaminophen-codeine 300-30 mg tablet 2 tab PO TID MDD 6 PRN (Reason: pain) Qty: 10 0RF albuterol sulfate 90 mcg/actuation HFA aerosol inhaler 2 inh inhalation QID PRN (Reason: shortness of breath or wheezing) Qty: 8.5 0RF prednisone 50 mg tablet 50 mg PO QDAY Qty: 3 0RF meclizine [Antivert] 25 mg tablet,chewable 25 mg PO TID PRN (Reason: Positional vertigo) Qty: 20 0RF nitrofurantoin monohyd/m-cryst [Macrobid] 100 mg capsule 100 mg PO BID Qty: 14 0RF Rx Instructions: must administer with a meal/food alum-mag hydroxide-simeth [Maalox Advanced] 200-200-20 mg/5 mL suspension 15 ml PO QID PRN (Reason: GERD) Qty: 3000 0RF Rx Instructions: administer between meals and at bedtime ibuprofen 600 mg tablet 600 mg PO Q6H PRN (Reason: headache) Qty: 20 0RF Referrals: No Primary/Family,Physician [Primary Care Provider] - In 1 week Problem List Clinical Impression: UTI (urinary tract infection), Costochondritis Patient/Caregiver Discharge Instructions Discharge Activity: activity as tolerated Education Materials: Costochondritis, Understanding Urinary Tract ... Additional Instructions: Thank you for the opportunity for serving you today. You are stable for discharged . You are advised to: Follow-up with your PCP in 1 to 2 days Return to ED for worsening of symptoms Increase oral fluids Take medication as prescribed Print Language: Argentine Stand Alone Forms: Quyn[employer] Award Info., Patient Portal Info Letter ALEIDA/PRANAV Supervising Physician ALEIDA/PRANAV Supervising Physician: MD Alfred [facility] Narrative [facility] hospital course: 59-year-old female with normal medical history presents to the emergency room with a chief complaint of dizziness, lightheadedness, chest wall pain, palpitations x 2 days. Severity of symptoms mild. Denies any fever. Denies any vomiting. Denies any other complaints no medication was taken prior to arrival. EKG showed sinus rhythm, ventricular rate of 81 bpm, no ST segment elevation depression noted. Patient's workup today all came back unremarkable except for UTI no leukocytosis noted troponin is normal. I personally reviewed and interpreted the x-ray of this patient. There is no acute abnormalities found, no infiltrates no pneumothorax no hemothorax normal chest x-ray. Review of other structures was without significant abnormal findings also. I additionally reviewed the radiologist report and agree with the interpretation. Patient received ceftriaxone Toradol and IV fluids for significant problem symptoms. Was noted to be ambulatory unaided. Medical Records Reviewed None Medication Administration(s) Medication Administration History Discontinued Medications Ceftriaxone Sodium/Dextrose (Rocephin/D5w 1gm Iv Premix) 1 gm in 50 mls @ 100 mls/hr IV X1 ONE Stop: 04/26/25 22:27 Last Infusion: 04/26/25 23:04 Dose: Infused Documented By: Admin: 04/26/25 22:25 Dose: 100 mls/hr Documented By: SUZY Lactated Ringer's (Lactated Ringers) 1,000 mls @ 999 mls/hr IV .Q1H1M ONE Stop: 04/26/25 22:59 Last Admin: 04/26/25 22:25 Dose: 999 mls/hr Documented By: SUZY Ketorolac Tromethamine (Ketorolac Inj 30 Mg/Ml Vial) 30 mg IVP X1 ONE Stop: 04/26/25 21:59 Last Admin: 04/26/25 22:24 Dose: 30 mg Documented By: SUZY Meclizine HCl (Meclizine Hcl 25 Mg Tablet) 50 mg PO X1 ONE Stop: 04/26/25 17:51 Last Admin: 04/26/25 19:30 Dose: 50 mg Documented By: FARRAH
[2025-04-26] MEDS: KETOROLAC INJ 30 MG/ML VIAL IVP (22:24)
[2025-04-26] MEDS: RINGERS LACTATED 1000 ML 1,000 ML 999 ML IV (22:25)
[2025-04-26] MEDS: cefTRIAXone/D5w 1gm IV premix 1 GM/50 ML BAG IV (22:25)
[2025-04-27 00:01] VITALS: BP 128/86; PULSE 72; RESP 16; TEMP 36.5; O2SAT 98
== END 2025-04-27 00:31 | disposition home or self-care (01) ==
PROVIDERS: Nurse Practitioner Family; Emergency Provider Emergency Medicine
DX: N39.0 Urinary tract infection, site not specified (principal); M94.0 Chondrocostal junction syndrome [Tietze]
CPT/HCPCS: 36415; 71046; 80053; 81001; 83880; 84484; 85025; 93005; 96360; 96361; 96365; 96375; 99283; J0696; J1885; J7120; A9270